=== PATIENT | male | born 1995 | race African-American/Black ===

== ENCOUNTER 2017-06-19 22:27 | Emergency (ER) | payer OTHER ==
[2017-06-20] MEDS ORDERED: Adacel (T-DAP) 0.5 ML VIAL ONE (03:22)
[2017-06-20] MEDS ORDERED: Bacitracin Zinc 1 Packet ONE (03:22)
== END 2017-06-20 03:46 | disposition home or self-care (01) ==
LOC: ERS 22:27
DX: T23.261A Burn of second degree of back of right hand, initial encounter (principal); T23.171A Burn of first degree of right wrist, initial encounter; X10.2XXA Contact with fats and cooking oils, initial encounter; Y99.0 Civilian activity done for income or pay
CPT/HCPCS: 90715; 99283